=== PATIENT | female | born 1950 | race Asian ===

== ENCOUNTER 2024-10-04 12:29 | Outpatient (REF) | payer OTHER, SELFPAY ==
[2024-10-04 12:44] LABS: MANUAL DIFF FLAG NO
[2024-10-04 13:43] LABS: Basophils Absolute Auto 0.1 X10*3/uL (0.0-0.2); Basophils Percent Auto 0.5 % (0-2); Eosinophils Absolute Auto 0.7 X10*3/uL (0.0-0.4); Eosinophils Percent Auto 7.2 % (0-4); Hematocrit 34.3 % (37.0-47.0); Hemoglobin 10.8 g/dl (12.0-16.0); Imm Gran Abs Auto 0.02 X10*3/uL (0.00-0.03); Imm Gran Pct Auto 0.2 % (0.0-0.4); Lymphocytes Absolute Auto 2.3 X10*3/uL (1.2-4.9); Lymphocytes Percent Auto 24.6 % (20-40); Mean Corpuscular HGB Conc 31.5 g/dl (31.0-35.0); Mean Corpuscular Hemoglobin 27.2 pg (27.0-33.0); Mean Corpuscular Volume 86.4 fL (80.0-98.0); Mean Platelet Volume 12.2 fL (9.4-12.3); Monocytes Absolute Auto 0.8 X10*3/uL (0.1-1.2); Monocytes Percent Auto 8.4 % (2-11); Neutrophils Absolute Auto 5.4 x10*3/uL (2.0-8.3); Neutrophils Percent Auto 59.1 % (45-73); Platelet Count 319 X10*3/uL (160-400); Red Blood Count 3.97 X10*6/uL (4.20-5.50); Red Cell Distribution Width 14.2 % (11.0-16.0); White Blood Count 9.1 X10*3/uL (4.8-10.8)
[2024-10-04 14:17] LABS: Anion Gap 11 (12-20); Blood Urea Nitrogen 16 mg/dL (9-16); Calcium 9.8 mg/dL (8.4-10.2); Carbon Dioxide 29 mmol/L (22-29); Chloride 110 mmol/L (96-108); Estimated Glomerular Filt Rate > 60; Glucose Random 119 mg/dL (60-115); Potassium 4.1 mmol/L (3.3-5.1); Sodium 146 mmol/L (135-145)
[2024-10-04 14:24] LABS: TSH reflex Free T4 0.99 uIU/mL (0.32-4.0)
[2024-10-04 14:36] LABS: Vitamin B12 464 pg/mL (200-900)
[2024-10-04 14:55] LABS: Folate 9.6 ng/mL (> or = 4.0)
== END 2024-10-04 12:30 | disposition home or self-care (01) ==
LOC: HO.LAB 12:29
PROVIDERS: PCP Internal Medicine; Visit Provider Psychiatry & Neurology Neurology
DX: G31.84 Mild cognitive impairment of uncertain or unknown etiology (principal)
CPT/HCPCS: 36415; 80048; 82607; 82746; 84443; 85025

== ENCOUNTER 2024-12-15 15:11 | Outpatient (REF) | payer OTHER, SELFPAY ==
--- NOTE | 2024-12-15 | EEG_ITS ---
Reason: MCI, confusion Medications: sucralfate, pantoprazole sodium, nateglinide, myrbetriq, metformin HCL, loratadine, insulin Aspart, hydroxyzine, HCL, gabapentin, famotidine, trulicity, atorvastatin calcium, atenolol, aspirin, apixaban, amlodipine besylate, alendronate sodium, albuterol sulfate HFA History: COPD, hypertension, hyperlipidemia, diabetic, GERD [place] Comments: Photic stimulation: completed Hyperventilation: completed Behavioral state: relaxed State of consciousness: awake and drowsy Skull defect: none Sedation: no Handedness: right Duration of study: 30 mins Description: The waking background activity consists of a moderate voltage 7-8 hertz posterior slow alpha intermixed with some muscle artifacts anteriorly. Intermittent theta frequencies was seen over both hemispheres particularly in the frontotemporal regions. Photic stimulation is without activation. Hyperventilation increases the background slowing. Impression: This EEG is considered mildly abnormal due to mild diffuse intermittent scattered slowing consistent with mild cerebral dysfunction diffusely MTDD
--- OUTSIDE RECORDS SUMMARY | 2024-12-15 15:13 | XMS_ITS | Clinical Summary ---
Author Organization [address] Address [address] [place] [address] Phone Care Team Providers Care Restaurant Greeter Name Role Phone Jorge Spears MD Primary Care Provider [phone]- [phone] Encounters Date Type Department Care Team Description 11/07/2024 Lab Requisition [facility] - Main Lab [address] [facility] [place] [address] Jorge Spears MD Essential (primary) hypertension from Last 3 Months Social History Tobacco Use Types Packs/Day Years Used Date Smoking Tobacco: Never Assessed Comments Unknown Sex and Gender Information Value Date Recorded Sex Assigned at Not on file Legal Sex Female 8:11 PM EST Gender Identity Not on file Sexual Orientation Not on file Plan of Treatment Health Maintenance Due Date Last Done Comments Breast Cancer Screening 1952 Diabetes: Annual Foot Exam 1962 Diabetes: Annual Retina Eye Exam 1962 DTaP,Tdap,and Td Vaccines (1 - Tdap) 12/27/1971 Zoster Vaccines (1 of 2) 2002 RSV Immunization Adult Patients (1 - Risk 60-74 years 1-dose series) 2012 Cholesterol Screening (Lipid Panel) 03/21/2022 Colorectal Cancer Screening: Colonoscopy 03/21/2022 Falls Risk Assessment 03/21/2022 Hepatitis C Screening 03/21/2022 Osteoporosis Screening (Bone Density Screening) 03/21/2022 Social Influencers of Health Screening 03/21/2022 Depression Screening 04/19/2024 COVID-19 Vaccine ( season) 2024 01/18/2024, 06/08/2023, 08/13/2021, Additional history exists Diabetes: Annual Urine Albumin-Creatinine Ratio (uACR) 11/12/2024 Diabetes: Blood Sugar Control Test (HGBA1C) 11/12/2024 Influenza Vaccine (#1) 2024 , 01/26/2023, 01/05/2022, Additional history exists Diabetes: Annual GFR (Glomerular Filtration Rate) 11/07/2025 11/07/2024 Hypertension/CHF/CAD Annual BMP Blood Test 11/07/2025 11/07/2024 Pneumococcal Vaccine: 50+ Years Completed 03/31/2022 HIB Vaccines Aged Out No longer eligi ble based on patient's age to complete this topic HPV Vaccines Aged Out No longer eligi ble based on patient's age to complete this topic Hepatitis A Vaccines Aged Out No long er eligible based on patient's age to complete this topic Hepatitis B Vaccines Aged Out No long er eligible based on patient's age to complete this topic IPV Vaccines Aged Out No longer eligi ble based on patient's age to complete this topic MMR Vaccines Aged Out No longer eligi ble based on patient's age to complete this topic Meningococcal ACWY Vaccine Aged Out N o longer eligible based on patient's age to complete this topic Meningococcal B Vaccine Aged Out No l onger eligible based on patient's age to complete this topic RSV Immunization Patients Under 20 months Aged Out No longer eligible based on patient's age to complete this topic Varicella Vaccines Aged Out No longer eligible based on patient's age to complete this topic Procedures Procedure Name Priority Date/Time Associated Diagnosis Comments COMPREHENSIVE METABOLIC PANEL Routine 11/07/2024 7:17 AM EDT Essential (primary) hypertension COMPLETE BLOOD COUNT Routine 11/07/2024 7:17 AM EDT Essential (primary) hypertension from Last 3 Months Results * (ABNORMAL) Complete blood count (11/07/2024 7:17 AM EDT) WBC 9.4 4.8 - 10.8 K/mcL LAB HEMETOLOGY METHOD 11/07/2024 10:[address] [facility] RBC 3.50(L) 3.80 - 4.80 M/mcL LAB HEMETOLOGY METHOD 11/07/2024 10:[address] [facility] Hemoglobin 9.4(L) 11.5 - 16.0 g/dL LAB HEMETOLOGY METHOD 11/07/2024 10:[address] [facility] Hematocrit 29.6(L) 35.0 - 47.0 % LAB HEMETOLOGY METHOD 11/07/2024 10:[address] [facility] MCV 83.6 79.0 - 98.0 FL LAB HEMETOLOGY METHOD 11/07/2024 10:[address] [facility] MCH 26.6(L) 27.0 - 32.0 pcg LAB HEMETOLOGY METHOD 11/07/2024 10:[address] [facility] MCHC 31.8(L) 32.0 - 37.0 g/dL LAB HEMETOLOGY METHOD 11/07/2024 10:[address] [facility] RDW 13.8 11.0 - 15.0 % LAB HEMETOLOGY METHOD 11/07/2024 10:[address] [facility] Platelets 419(H) 130 - 400 K/mcL LAB HEMETOLOGY METHOD 11/07/2024 10:[address] [facility] MPV 11.3(H) 7.0 - 11.0 FL LAB HEMETOLOGY METHOD 11/07/2024 10:[address] [facility] NRBC 0.0 <1.0 % LAB HEMETOLOGY METHOD 11/07/2024 10:[address] [facility] NRBC Absolute 0.00 <0.10 K/mcL LAB HEMETOLOGY METHOD 11/07/2024 10:[address] [facility] Blood Venous blood specimen / Unknown Venipuncture / Unknown 11/07/2024 7:17 AM EDT 11/07/2024 8:48 AM EDT us Jorge Spears MD LAB BLOOD ORDERABLES Final Result [facility] [address] [place] [address], * (ABNORMAL) Comprehensive metabolic panel (11/07/2024 7:17 AM EDT) Sodium 141 133 - 145 mmol/L LAB CHEMISTRY METHOD 11/07/2024 11:[address] [facility] Potassium 4.5 3.5 - 5.5 mmol/L LAB CHEMISTRY METHOD 11/07/2024 11:[address] [facility] Chloride 108 96 - 110 mmol/L LAB CHEMISTRY METHOD 11/07/2024 11:[address] [facility] CO2 28 21 - 32 mmol/L LAB CHEMISTRY METHOD 11/07/2024 11:[address] [facility] Anion Gap 5 3 - 11 LAB CHEMISTRY METHOD 11/07/2024 11:[address] [facility] Glucose 176(H) 70 - 100 mg/dL LAB CHEMISTRY METHOD 11/07/2024 11:[address] [facility] BUN 14 5 - 25 mg/dL LAB CHEMISTRY METHOD 11/07/2024 11:[address] [facility] Creatinine 0.83 0.50 - 1.10 mg/dL LAB CHEMISTRY METHOD 11/07/2024 11:[address] [facility] eGFR 75 >=60 mL/min/1. 73m2 LAB CHEMISTRY METHOD 11/07/2024 11:[address] [facility] Comment:Calculation based on the Chronic Kidney Disease Epidemiology Collaboration (CKD-EPI) equation refit without adjustment for race. BUN/Creatinine Ratio 16.9 LAB CHEMISTRY METHOD 11/07/2024 11:[address] [facility] Calcium 8.7 8.5 - 10.5 mg/dL LAB CHEMISTRY METHOD 11/07/2024 11:[address] [facility] AST (SGOT) 16 10 - 42 unit/L LAB CHEMISTRY METHOD 11/07/2024 11:[address] [facility] ALT (SGPT) 22 10 - 60 unit/L LAB CHEMISTRY METHOD 11/07/2024 11:[address] [facility] Alkaline Phosphatase 94 42 - 121 unit/L LAB CHEMISTRY METHOD 11/07/2024 11:[address] [facility] Total Protein 6.8 6.0 - 8.0 g/dL LAB CHEMISTRY METHOD 11/07/2024 11:[address] [facility] Albumin 3.1(L) 3.2 - 5.0 g/dL LAB CHEMISTRY METHOD 11/07/2024 11:[address] [facility] Total Bilirubin 0.2 0.0 - 1.4 mg/dL LAB CHEMISTRY METHOD 11/07/2024 11:[address] [facility] Blood Venous blood specimen / Unknown Venipuncture / Unknown 11/07/2024 7:17 AM EDT 11/07/2024 8:48 AM EDT Jorge Spears MD LAB BLOOD ORDERABLES Final Result [facility] [address] [place] [address], from Last 3 Months Insurance [place]ICA[place] - [place] [facility] Member Subscriber Plan / Payer (Ef fective 2018-Present) Name:Eula Gibbs Relation to Subscriber:Self Name:Eula Gibbs Payer ID:[id number] Group ID:[id number] Type:Not on file Address: [address] [place] [address] Care Teams Restaurant Greeter Relationship Specialty Start Date End Date Jorge Spears MD [address] [place] [id number] PCP - General Internal Medicine 11/07/24
--- OUTSIDE RECORDS SUMMARY | 2024-12-15 15:13 | XMS_ITS | Encounter Summary ---
Author Organization [facility] Address [address] [place] [id number] Care Team Providers Care Skin Peeling Machine Operator Name Role Phone Jorge Spears MD Primary Care Provider [phone]- [phone] Encounter Details Date Type Department Care Team (Late st Contact Info) Description 11/07/2024 Lab Requisition [facility] - Main Lab [address] [place] [address] Jorge Spears MD [address] [place] [address] Essential (primary) hypertension Social History Tobacco Use Types Packs/Day Years Used Date Smoking Tobacco: Never Assessed Comments Unknown Sex and Gender Information Value Date Recorded Sex Assigned at Not on file Legal Sex Female 8:11 PM EST Gender Identity Not on file Sexual Orientation Not on file documented as of this encounter Plan of Treatment Not on file documented as of this encounter Procedures Procedure Name Priority Date/Time Associated Diagnosis Comments COMPLETE BLOOD COUNT Routine 11/07/2024 7:17 AM EDT Essential (primary) hypertension COMPREHENSIVE METABOLIC PANEL Routine 11/07/2024 7:17 AM EDT Essential (primary) hypertension documented in this encounter Results * (ABNORMAL) Comprehensive metabolic panel (11/07/2024 7:17 AM EDT) Sodium 141 133 - 145 mmol/L LAB CHEMISTRY METHOD 11/07/2024 11:00 AM EDT [facility] Potassium 4.5 3.5 - 5.5 mmol/L LAB CHEMISTRY METHOD 11/07/2024 11:00 AM EDT [facility] Chloride 108 96 - 110 mmol/L [...] unit/L LAB CHEMISTRY METHOD 11/07/2024 11:[address] [facility] ALT (SGPT) 22 10 - 60 unit/L LAB CHEMISTRY METHOD 11/07/2024 11:[address] [facility] Alkaline Phosphatase 94 42 - 121 unit/L LAB CHEMISTRY METHOD 11/07/2024 11:[address] [facility] Total Protein 6.8 6.0 - 8.0 g/dL LAB CHEMISTRY METHOD 11/07/2024 11:[address] [facility] Albumin 3.1(L) 3.2 - 5.0 g/dL LAB CHEMISTRY METHOD 11/07/2024 11:[address] [facility] Total Bilirubin 0.2 0.0 - 1.4 mg/dL LAB CHEMISTRY METHOD 11/07/2024 11:[address] [facility] Blood Venous blood specimen / Unknown Venipuncture / Unknown 11/07/2024 7:17 AM EDT 11/07/2024 8:48 AM EDT us Jorge Spears MD LAB BLOOD ORDERABLES Final Result [facility] [address] [place] [address], * (ABNORMAL) Complete blood count (11/07/2024 7:17 AM EDT) WBC 9.4 4.8 - 10.8 K/mcL LAB HEMETOLOGY METHOD 11/07/2024 10:[address] [facility] RBC 3.50(L) 3.80 - 4.80 M/mcL LAB HEMETOLOGY METHOD 11/07/2024 10:[address] [facility] Hemoglobin 9.4(L) 11.5 - 16.0 [...] g/dL LAB HEMETOLOGY METHOD 11/07/2024 10:41 AM EDT [facility] RDW 13.8 11.0 - 15.0 % LAB HEMETOLOGY METHOD 11/07/2024 10:41 AM EDT [facility] Platelets 419(H) 130 - 400 K/mcL LAB HEMETOLOGY METHOD 11/07/2024 10:41 AM EDT [facility] MPV 11.3(H) 7.0 - 11.0 FL LAB HEMETOLOGY METHOD 11/07/2024 10:41 AM EDT [facility] NRBC 0.0 <1.0 % LAB HEMETOLOGY METHOD 11/07/2024 10:41 AM EDT [facility] NRBC Absolute 0.00 <0.10 K/mcL LAB HEMETOLOGY METHOD 11/07/2024 10:41 AM EDT [facility] Blood Venous blood specimen / Unknown Venipuncture / Unknown 11/07/2024 7:17 AM EDT 11/07/2024 8:48 AM EDT Jorge Spears MD LAB BLOOD ORDERABLES Final Result [facility] [address] [place] [address], documented in this encounter Visit Diagnoses Diagnosis Essential (primary) hypertension Unspecified essential hypertension documented in this encounter Care Teams Skin Peeling Machine Operator Relationship Specialty Start Date End Date Jorge Spears MD [address] [place] [id number] PCP - General Internal Medicine 11/07/24 documented as of this encounter
--- OUTSIDE RECORDS SUMMARY | 2024-12-15 15:13 | XMS_ITS | Clinical Summary ---
Author Organization [facility] Address [address] [place] [address] Care Team Providers Care Tax Commissioner Name Role Phone Unavailable Primary Care Provider Unavailabl e Source Comments PLEASE NOTE, if this patient is a minor, it may be UNLAWFUL to discuss sensitive information that is contained in these records (such as FAMILY PLANNING, MENTAL HEALTH or SUBSTANCE ABUSE) with the minor patient's parent or other person without the patient's specific authorization.[facility] Medications No known medications Active Problems No known active problems Social History Tobacco Use Types Packs/Day Years Used Date Smoking Tobacco: Never Smokeless Tobacco: Never Tobacco Cessation:Counseling Given: No Alcohol Use Standard Drinks/Week Comments Never 0 (1 standard drink = 0.6 oz pur e alcohol) Social Connections Answer Date Recorded Social Connections and Isolation 0 07/24/2022 Financial Resource Strain Answer Date R ecorded Financial Resource Strain 0 2022 Stress Answer Date Recorded Stress 0 07/24/2022 Physical Activity Answer Date Recorded Physical Activity 0 07/24/2022 Food Insecurity Answer Date Recorded Food 0 07/24/2022 Transportation Needs Answer Date Record ed Transportation 0 07/24/2022 Housing Stability Answer Date Recorded Housing 0 07/24/2022 Safety and Environment Answer Date Johnny rded Safety 0 07/24/2022 Utilities Answer Date Recorded Utilities 0 07/24/2022 Employment Answer Date Recorded Employment 0 07/24/2022 Comments Unknown Sex and Gender Information Value Date Recorded Sex Assigned at Not on file Legal Sex Female 7:00 AM PST Gender Identity Not on file Sexual Orientation Not on file Last Filed Vital Signs Vital Sign Reading Time Taken Comments Blood Pressure 114/66 06/09/2022 12:57 PM EST Pulse 80 06/09/2022 12:57 PM EST Temperature - - Respiratory Rate - - Oxygen Saturation - - Inhaled Oxygen Concentration - - Weight - - Height - - Body Mass Index - - Plan of Treatment Not on file Insurance [facility] - [facility]
== END 2024-12-15 15:12 | disposition home or self-care (01) ==
LOC: HO.NEURO 15:11
PROVIDERS: PCP Internal Medicine; Visit Provider Psychiatry & Neurology Neurology
DX: G31.84 Mild cognitive impairment of uncertain or unknown etiology (principal); R94.01 Abnormal electroencephalogram [EEG]
CPT/HCPCS: 95816

== ENCOUNTER → 2024-12-15 15:15 | Outpatient (BNV) | payer OTHER, SELFPAY | PROVIDERS: PCP Internal Medicine; Visit Provider Psychiatry & Neurology Neurology | DX: G31.84 Mild cognitive impairment of uncertain or unknown etiology (principal) | CPT/HCPCS: 95816 ==

== ENCOUNTER 2025-02-06 15:33 | Outpatient (AMB) | payer OTHER, SELFPAY ==
--- NOTE | 2025-02-06 15:38 | MHC.OFFVIS ---
Intake Visit Reasons: [facility] Medication List - Last Reconciled 02/06/25 by Ralf Stern MD albuterol sulfate 90 mcg/actuation (Ventolin HFA) 2 puffs inhalation Q6H PRN alendronate 70 mg PO QWEEK amlodipine 5 mg PO DAILY apixaban 5 mg PO BID aspirin 81 mg PO DAILY atenolol 25 mg PO DAILY atorvastatin (Lipitor) 80 mg PO DAILY dulaglutide (Trulicity) 0.75 mg subcut QWEEK famotidine 20 mg PO BEDTIME gabapentin 300 mg PO BID hydroxyzine HCl 25 mg PO DAILY PRN insulin aspart U-100 1 sliding scale dose subcut USEASDIRECTD loratadine (Allergy Relief (loratadine)) 10 mg PO DAILY metformin 500 mg PO BID mirabegron ER (Myrbetriq) 25 mg PO DAILY nateglinide 120 mg PO BID pantoprazole 40 mg PO DAILY sucralfate 10 mL PO QID HPI Comments Details: This is a 74-year-old woman who has been having more frequent episodes of confusion in the last 3 months where she becomes more forgetful, disoriented and dizzy.? At least 2 of these were associated with a UTI.? The symptoms come and go.? She also has paranoia that people are stealing her things and hides her things and can't find them.? She has visual hallucinations of seeing people.? She lives alone and on one occasion she called the police.? The visiting nurses come in every morning to give her the morning pills and check vitals.? Her daughter and grandson look in later in the day.? She had a CT and CTA on 09/09/24 and an MRI of the brain on 07/13/24, which showed some white matter disease and bilateral basal ganglia lacunar infarct , and a right cerebellar infarct. [facility] Medical History (Updated 02/06/25 @ 15:52 by Ralf Stern MD) GERD (gastroesophageal reflux disease) Diabetes mellitus Hyperlipemia HTN (hypertension) COPD (chronic obstructive pulmonary disease) Social History (Updated 02/01/25 @ 15:26 by CASSANDRA Jackson) Alcohol intake: never Patient Tobacco Use Status: Never used Tobacco e-Cigarette/Vaping Use: Never Used Review of Systems Const Details: ?Sleep:? Difficulty getting to sleepdenies.? Difficulty maintaining sleepdenies?.? Urge to move legsdenies.? Teeth grindingdenies.? Shouting or Kicking during sleepdenies.? Abnormal behavior during sleepdenies.? Excessive sleepadmits.? Snoringadmits.? Daytime sleepinessdenies. ???General/Constitutional:? Change in appetitedenies.? Chillsdenies.? Fatiguedenies.? Feverdenies.? Weight gaindenies.? Weight lossdenies. ???Ophthalmologic:? Blurred visiondenies.? Diminished visual acuitydenies. ???ENT:? Stuffinessdenies.? Decreased hearingadmits.? Dry mouthdenies.? Ear paindenies.? Nosebleeddenies.? Ringing in the earsdenies.? Sinus paindenies.? Sore throatdenies.? Swollen glandsdenies. ???Endocrine:? Cold intolerancedenies.? Excessive thirstdenies.? Frequent urinationdenies.? Heat intolerancedenies. ???Respiratory:? Shortness of breathdenies.? Chest paindenies.? Coughdenies. ???Breast:? Breast lumpdenies.? Nipple dischargedenies. ???Cardiovascular:? Chest pain at restdenies.? Chest pain with exertiondenies.? Claudicationdenies.? Dizzinessdenies.? Fluid accumulation in the legsdenies.? Irregular heartbeatdenies.? Palpitationsdenies. ???Gastrointestinal:? Abdominal paindenies.? Constipationdenies.? Diarrheadenies.? Difficulty swallowingdenies.? Heartburnadmits.? Nauseadenies.? Rectal bleedingdenies. ???Hematology:? Easy bruisingdenies.? Prolonged bleedingdenies. ???Genitourinary:? Frequent urinationadmits.? Urgencyadmits.? Incontinenceadmits.? Erectile Dysfunctiondenies. ???Musculoskeletal:? Neck painadmits.? Back painadmits.? Muscle achesadmits.? Painful jointsdenies.? Sciaticadenies.? Weaknessdenies. ???Podiatric:? Difficulty walkingdenies.? Foot numbnessdenies. ???Neurologic:? Difficulty swallowingdenies.? Balance difficultyadmits.? Coordinationnormal.? Difficulty speakingdenies.? Dizzinessadmits.? Faintingdenies.? Gait abnormalitydenies.? Headachedenies.? Loss of strengthdenies.? Loss of use of extremitydenies.? Low back paindenies.? Memory lossdenies.? Seizuresdenies.? Ticsdenies.? Tingling/Numbnessdenies.? Transient loss of visiondenies.? Tremordenies. ???Psychiatric:? Anxietyadmits.? Auditory/visual hallucinationsadmits.? Delusionsadmits.? Depressed mooddenies.? Stressorsdenies.? Substance abusedenies.? Suicidal thoughtsdenies. Physical Exam Neuro Other: Neurological: Abnormal neurological findings:??none.?Mental Status:??alert and oriented X 3,?Normal attention, orientation, memory and affect.?Cranial Nerves:??Pupils are equal, round and reactive to light. Fundoscopy shows normal disc bilaterally. External occular muscles are intact. Visual black are full, no ptosis. Face is symmetrical, no facial weakness or droop. Facial sensations are normal. Tongue protrudes in midline. Palate elevates symmetrically. Shoulder shrugging is normal..?Motor Examination:??Normal muscle tone, bulk and strength,?No atrophy or fasciculations,?No drift of the extended upper extremities,?Deep tendon reflexes are 2+?,?Plantars are flexor?.?Motor Strength:?Proximal Muscles (out of 5):5Distal Muscles (out of 5):5Neck Flexors (out of 5):5Neck Extensors (out of 5):5Deltoid (out of 5):5Biceps (out of 5):5Triceps (out of 5):5Serratus Anterior (out of 5):5Wrist Extensors (out of 5):5APB (out of 5):5Finger Spread (out of 5):5Ileopsoas (out of 5):5Quadriceps (out of 5):5Hamstrings (out of 5):5Tibialis Anterior (out of 5):5Peronei (out of 5):5EDB (out of 5):5Gastrocnemius (out of 5):5Straight Leg Raising:??90 degrees.?Sensory Exam:??Normal light touch, temperature, pinprick, vibration and joint-position sensations?,?Rhomberg sign is absent.?Coordination:??no ataxia,?no titubation,?flafxc-ax-cmsm, qrqy-csga-xhzf test and rapid alternating movements were normal.?Gait Exam:??Within normal limits.?Cerebellar Signs:??Aapepi-of-cbgr and dalj-rg-qupr is normal,?no dysdiadochokinesia?.?Extrapyramidal System:??No tremor, rigidity with normal facial expressions,?No bradykinesia, no bradyphrenia. Normal arm swing and posture. No propulsion or retropulsion.?Speech:??Normal,?no dysphasia or dysarthria..? Mini Mental Status Exam: Level of Consciousness:??Alert.?Orientation:??Knows correct year, month, date, day and season,?Knows correct city, county and state. Knows correct location and floor.?Registration:??Able to register 3 objects.?Attention:??Serial 7's performed accurately.?Recall:??Able to recall 3 out of 3 objects.?Language:??Normal spontaneous speech, fluency, repetition,naming, comprehension, reading and writing.?Total Score:??30/30.? Assessment & Plan Assessment & Plan (1) MCI (mild cognitive impairment): Comment: 10/04/24 Thyroid and Vitamin levels normal. Mild anemia and hypernatremia 12/15/24 EEG: Impression: This EEG is considered mildly abnormal due to mild diffuse intermittent scattered slowing consistent with mild cerebral dysfunction diffusely CT and CTA on 09/09/24 and an MRI of the brain on 07/13/24, which showed some white matter disease and bilateral basal ganglia lacunar infarct , and a right cerebellar infarct. Code(s): G31.84 - Mild cognitive impairment of uncertain or unknown etiology Category: Medical (2) Hallucinations: Code(s): R44.3 - Hallucinations, unspecified Category: Medical (3) Lewy body dementia: Comment: Possible LBD Code(s): G31.83 - Neurocognitive disorder with Lewy bodies; F02.80 - Dementia in other diseases classified elsewhere, unspecified severity, without behavioral disturbance, psychotic disturbance, mood disturbance, and anxiety Category: Medical Plan Hallucinations have stopped. Will add Donepezil Medications: New donepezil 5 mg PO DAILY 30 tabs 5RF 30 days Coding Level of Care Code Est Pt Level 4 (03894) Diagnoses MCI (mild cognitive impairment) G31.84 Hallucinations R44.3 Lewy body dementia G31.83; F02.80
--- OUTSIDE RECORDS SUMMARY | 2025-02-06 20:37 | XMS_ITS | Encounter Summary ---
Author Organization [facility] Address [id number] [place] [id number] Care Team Providers Care Assembly Lead Person Name Role Phone Jorge Spears MD Primary Care Provider [phone]- [phone] Encounter Details Date Type Department Care Team (Late st Contact Info) Description 11/07/2024 Lab Requisition [facility] - Main Lab [address] [place] [address] Jorge Spears MD [address] [place] [address] Essential (primary) hypertension Social History Tobacco Use [...] LAB CHEMISTRY METHOD 11/07/2024 11:00 AM EDT [facility] Potassium 4.5 3.5 - 5.5 mmol/L LAB CHEMISTRY METHOD 11/07/2024 11:00 AM EDT [facility] Chloride 108 96 - 110 mmol/L LAB CHEMISTRY METHOD 11/07/2024 11:00 AM [facility] CO2 28 21 - 32 mmol/L LAB CHEMISTRY METHOD 11/07/2024 11:00 AM [facility] Anion Gap 5 3 - 11 LAB CHEMISTRY METHOD 11/07/2024 11:00 AM [facility] Glucose 176(H) 70 - 100 mg/dL LAB CHEMISTRY METHOD 11/07/2024 11:00 AM [facility] BUN 14 5 - 25 mg/dL LAB CHEMISTRY METHOD 11/07/2024 11:00 AM [facility] Creatinine 0.83 0.50 - 1.10 mg/dL LAB CHEMISTRY METHOD 11/07/2024 11:00 AM [facility] eGFR 75 >=60 mL/min/1. 73m2 LAB CHEMISTRY METHOD 11/07/2024 11:00 AM [facility] Comment:Calculation based on the Chronic Kidney Disease Epidemiology Collaboration (CKD-EPI) equation refit without adjustment for race. BUN/Creatinine Ratio 16.9 LAB CHEMISTRY METHOD 11/07/2024 11:00 AM [facility] Calcium 8.7 8.5 - 10.5 mg/dL LAB CHEMISTRY METHOD 11/07/2024 11:00 AM [facility] AST (SGOT) 16 10 - 42 unit/L LAB CHEMISTRY METHOD 11/07/2024 11:00 AM [facility] ALT (SGPT) 22 10 - 60 unit/L LAB CHEMISTRY METHOD 11/07/2024 11:00 AM [facility] Alkaline Phosphatase 94 42 - 121 unit/L LAB CHEMISTRY METHOD 11/07/2024 11:00 AM [facility] Total Protein 6.8 6.0 - 8.0 g/dL LAB CHEMISTRY METHOD 11/07/2024 11:00 AM [facility] Albumin 3.1(L) 3.2 - 5.0 g/dL LAB CHEMISTRY METHOD 11/07/2024 11:00 AM [facility] Total Bilirubin 0.2 0.0 - 1.4 mg/dL LAB CHEMISTRY METHOD 11/07/2024 11:00 AM [facility] Blood Venous blood specimen / Unknown Venipuncture / Unknown 11/07/2024 7:17 AM EDT 11/07/2024 8:48 AM EDT us Jorge Spears MD LAB BLOOD ORDERABLES Final Result [facility] [address] [place] [address], * (ABNORMAL) Complete blood count (11/07/2024 7:17 AM EDT) WBC 9.4 4.8 - 10.8 K/mcL LAB HEMETOLOGY METHOD 11/07/2024 10:41 AM [facility] RBC 3.50(L) 3.80 - 4.80 M/mcL LAB HEMETOLOGY METHOD 11/07/2024 10:41 AM [facility] Hemoglobin 9.4(L) 11.5 - 16.0 g/dL LAB HEMETOLOGY METHOD 11/07/2024 10:41 AM [facility] Hematocrit 29.6(L) 35.0 - 47.0 % LAB HEMETOLOGY METHOD 11/07/2024 10:41 AM [facility] MCV 83.6 79.0 - 98.0 FL LAB HEMETOLOGY METHOD 11/07/2024 10:41 AM [facility] MCH 26.6(L) 27.0 - 32.0 pcg LAB HEMETOLOGY METHOD 11/07/2024 10:41 AM [facility] MCHC 31.8(L) 32.0 - 37.0 g/dL LAB HEMETOLOGY METHOD 11/07/2024 10:41 AM EDT [facility] RDW 13.8 11.0 - 15.0 % LAB HEMETOLOGY METHOD 11/07/2024 10:41 AM EDT [facility] Platelets 419(H) 130 - 400 K/mcL LAB HEMETOLOGY METHOD 11/07/2024 10:41 AM EDT [facility] MPV 11.3(H) 7.0 - 11.0 FL LAB HEMETOLOGY METHOD 11/07/2024 10:41 AM EDT [facility] NRBC 0.0 <1.0 % LAB HEMETOLOGY METHOD 11/07/2024 10:41 AM EDT [facility] NRBC Absolute 0.00 <0.10 K/mcL LAB HEMETOLOGY METHOD 11/07/2024 10:41 AM EDT [facility] Blood Venous blood specimen / Unknown Venipuncture / Unknown 11/07/2024 7:17 AM EDT 11/07/2024 8:48 AM EDT Jorge Spears MD LAB BLOOD ORDERABLES Final Result [facility] [address] [place] [address], documented in this encounter Visit Diagnoses Diagnosis Essential (primary) hypertension Unspecified essential hypertension documented in this encounter Care Teams Assembly Lead Person Relationship Specialty Start Date End Date Jorge Spears MD [address] [place] [id number] PCP - General Internal Medicine 11/07/24 documented as of this encounter
--- OUTSIDE RECORDS SUMMARY | 2025-02-06 20:37 | XMS_ITS | Data Portability ---
Author Organization [employer] [facility], [email or web address] Address [address] [place] [phone] Care Team Providers Care Bioinformatics Scientist Name Role Phone EULA MADDOX Primary Care Provider HIM CCA OTHER Assessment Encounter Date Assessment Date Assessment LastModified by Organization Details LastModified Time 11/08/2023 11/08/2023 72 yo F with recent UTI now seen with altered mental status, visual hallucinations and found to be hypotensive w/tachycardia all concerning for severe sepsis. Pt was transported to [facility] ED for further evaluation and management. [email or web address] Not available 11/11/2023 21:41:44 Plan of Treatment Reminders Order Date Submit Date Provider Last Modified By Organization Details Last Modified Time Details Appointments None record ed. Lab None record ed. Referral None record ed. Procedures None record ed. Surgeries None record ed. Imaging None record ed. Medication Orders None record ed. Patient TargetsNo targets recorded. Patient InstructionsNo instructions recorded. Reason for Referral None Reported. Medical Equipment None Reported. Medications Name Sig Start Date Stop Date Status Note LastModified by Organization Details LastModified Time losartan 50 mg tablet TAKE 1 TABLET ONCE DAILY active Not Available Not Available No t Available quetiapine 25 mg tablet TAKE 1/2 TAB ONCE DAILY FOR 4 DAYS; THEN INCREASE TO 1 TAB ONCE DAILY active Not Available Not Available No t Available nateglinide 120 mg tablet TAKE 1 TABLET two (2) times a day active Not Available Not Available No t Available atorvastatin 80 mg tablet TAKE 1 TABLET ONCE DAILY active Not Available Not Available No t Available azelastine 0.05 % eye drops INSTILL 1 DROP IN EACH EYE NEEDED FOR ALLERGIES active Not Available Not Available No t Available doxycycline hyclate 100 mg capsule TAKE 1 CAPSULE two (2) times a day FOR 7 DAYS active Not Available Not Available No t Available ondansetron HCl 4 mg tablet TAKE 1 TABLET EVERY 8 HOURS FOR 3 DAYS FOR NAUSEA active Not Available Not Available No t Available alendronate 70 mg tablet TAKE 1 TABLET BY MOUTH ONCE A WEEK ON AN EMPTY STOMACH WITH A FULL GLASS OF WATER. REMAIN UPRIGHT FOR AT LEAST 30 MINUTES. active Not Available Not Available No t Available Alcohol Pads USE TO TEST FINGER STICK BLOOD SUGAR 3 (THREE) TIMES A DAY DIRECTED active Not Available Not Available Not Available atenolol 25 mg tablet TAKE 1 TABLET two (2) times a day active Not Available Not Available No t Available clobetasol 0.05 % topical cream APPLY TO THE AFFECTED AREA ON SKIN two (2) times a day active Not Available Not Available No t Available amlodipine 5 mg tablet TAKE 1 TABLET ONCE DAILY active Not Available Not Available No t Available sulfamethoxa zole 800 mg-trimethop rim 160 mg tablet TAKE 1 TABLET BY MOUTH two (2) times a day active Not Available Not Available No t Available aspirin 81 mg tablet,delay ed release TAKE 1 TABLET ONCE DAILY active Not Available Not Available No t Available acetaminophe n 500 mg tablet TAKE 2 TABLETS 3 (THREE) TIMES A DAY NEEDED FOR PAIN active Not Available Not Available No t Available ketorolac 0.5 % eye drops INSTILL 1 DROP IN EACH EYE two (2) times a day active Not Available Not Available Not Available famotidine 20 mg tablet TAKE 1 TABLET ONCE DAILY BEFORE DINNER active Not Available Not Available No t Available Proctozone-H C 2.5 % topical cream perineal applicator APPLY A THIN LAYER TO THE AFFECTED AREA ON SKIN AND RUB in 3 (THREE) TIMES A DAY active Not Available Not Available Not Available meclizine 25 mg tablet TAKE 1 TABLET 3 (THREE) TIMES A DAY NEEDED FOR DIZZINESS active Not Available Not Available No t Available pantoprazole 40 mg tablet,delay ed release TAKE 1 TABLET ONCE DAILY active Not Available Not Available No t Available docusate sodium 100 mg capsule TAKE 1 CAPSULE two (2) times a day FOR CONSTIPATIO N active Not Available Not Available No t Available gabapentin 300 mg capsule TAKE 1 CAPSULE two (2) times a day active Not Available Not Available No t Available hydroxyzine HCl 25 mg tablet TAKE 1 TABLET 3 (THREE) TIMES A DAY NEEDED active Not Available Not Available No t Available ammonium lactate 12 % topical cream APPLY TO THE AFFECTED AREA ON SKIN two (2) times a day active Not Available Not Available No t Available levofloxacin 500 mg tablet TAKE 1 TABLET ONCE DAILY FOR 7 DAYS. TAKE WITH FOOD active Not Available Not Available No t Available fluticasone propionate 50 mcg/actuatio n nasal spray,suspen rafaela SPRAY ONCE INTO EACH NOSTRIL two (2) times a day active Not Available Not Available No t Available metformin ER 500 mg tablet,exten ded release 24 hr TAKE 2 TABLETS ONCE DAILY active Not Available Not Available N ot Available loratadine 10 mg tablet TAKE 1 TABLET ONCE DAILY active Not Available Not Available No t Available amoxicillin 500 mg-potassium clavulanate 125 mg tablet TAKE 1 TABLET EVERY TWELVE HOURS FOR 7 DAYS active Not Available Not Available No t Available Ventolin HFA 90 mcg/actuatio n aerosol inhaler INHALE 2 PUFFS INTO lungs EVERY 6 HOURS NEEDED FOR WHEEZING active Not Available Not Available No t Available Vitamin D3 25 mcg (1,000 unit) capsule TAKE 1 CAPSULE ONCE DAILY active Not Available Not Available N ot Available Novolog FlexPen U-100 Insulin aspart 100 unit/mL (3 mL) subcutaneous INJECT 14 UNITS SUBCUTANEOU SLY BEFORE BREAKFAST AND INJECT 14 UNITS SUBCUTANEOU SLY BEFORE DINNER active Not Available Not Available No t Available ciprofloxaci n 0.3 %-dexamethas one 0.1 % ear drops,suspen rafaela INSTILL 4 DROP IN THE AFFECTED EAR two (2) times a day FOR 10 DAYS active Not Available Not Available Not Available nitrofuranto in monohydrate/ macrocrystal s 100 mg capsule TAKE 1 CAPSULE two (2) times a day FOR 5 DAYS active Not Available Not Available No t Available FreeStyle Lite Meter kit USE TO TEST FINGER STICK BLOOD SUGAR 3 (THREE) TIMES A DAY active Not Available Not Available Not Available FreeStyle Lite Strips USE TO TEST FINGER STICK BLOOD SUGAR 3 (THREE) TIMES A DAY active Not Available Not Available Not Available Lantus Solostar U-100 Insulin 100 unit/mL (3 mL) subcutaneous pen INJECT 14 UNITS SUBCUTANEOU SLY EVERY NIGHT AT BEDTIME active Not Available Not Available No t Available diclofenac 1 % topical gel APPLY 2 grams TO THE AFFECTED AREA ON SKIN 4 (FOUR) TIMES DAILY NEEDED FOR PAIN. not to exceed 16grams/day /single joint OF lower extremities active Not Available Not Available Not Available GaviLyte-G 236 gram-22.74 gram-6.74 gram-5.86 gram oral solution MIX WITH WATER TO fill line AND DRINK 240ml EVERY 10 MINUTES active Not Available Not Available N ot Available Myrbetriq 25 mg tablet,exten ded release TAKE 1 TABLET ONCE DAILY. NOT CRUSH OR CHEW AND SWALLOW active Not Available Not Available No t Available Eliquis 5 mg tablet TAKE 1 TABLET two (2) times a day active Not Available Not Available No t Available Inject Ease Lancets 28 gauge USE TO TEST FINGER STICK BLOOD SUGAR 3 (THREE) TIMES A DAY active Not Available Not Available Not Available Trulicity 0.75 mg/0.5 mL subcutaneous pen injector INJECT THE CONTENT OF 1 pen SUBCUTANEOU SLY EACH WEEK active Not Available Not Available No t Available baclofen 5 mg tablet TAKE 1 TABLET 3 (THREE) TIMES A DAY FOR MUSCLE SPASM active Not Available Not Available No t Available True Comfort Lancet 30 gauge USE TO TEST FINGER STICK BLOOD SUGAR 3 (THREE) TIMES A DAY active Not Available Not Available Not Available Gemtesa 75 mg tablet TAKE 1 TABLET ONCE DAILY active Not Available Not Available No t Available True Comfort Safety Pen Needle 32 gauge x 5/32 USE DIRECTED 4 (FOUR) TIMES DAILY active Not Available Not Available Not Available Vitals Date Recorded Body temperature Heart rate Respiratory rate Oxygen saturation Oxygen saturation in Arterial blood by Pulse oximetry Systolic And Diastolic Provider Name and Address Organization Details Last Updated DateTime 4 98.3 [degF] 132 /min 16 /min 96 % 96 % 93/66 mm[Hg] Not Available [employer] - production 4 10:40:04 Social History None recorded. Functional Status None recorded. Mental Status None recorded. Family History Nothing Reported. Medical History No medical history recorded. Gynecological HistoryNo gynecological history recorded. Obstetrics History GPAL:G 0 P 0 0 0 0 Past Encounters Encounter ID Performer Location Encounter Start Date Encounter Closed Date Diagnosis/Indication Diagnosis SNOMED-CT Code Diagnosis ICD10 Code Diagnosis IMO Codes Diagnosis Note [id number] FABIANA PARKER MD Main - [facility] [address] [place] [address] 11/08/2023 10:39:40 11/12/2023 08:29:03 Altered mental status 066975166 R41.82 Low blood pressure 22129 003 I95.9 Tachycardia 7286965 R00. 0 Health Concerns Section Related Observation LastModified by Organization Barbie atkinson LastModified Time None Recorded Concern Status LastModified by Organization Details LastModified Time None Recorded Advance Directives Directive None Recorded Payers Insurance Date Sequence Insurance Name Policy Number Policy Elizabeth Covered Member ID Elizabeth Member ID Guarantor Name 11/08/2023 1 [facility] - DOS ON OR AFTER 2022 - DUAL ELIGIBLE - [facility] OPTIONS AND ONE CARE (MEDICARE REPLACEMENT/ADV ANTAGE - HMO) Eula Gibbs [id number] Eula Gibbs Notes Date Note Type Note Provider Name and Address Organization Details Recorded Time 11/08/2023 text/html CRC Nurse Triage Notes (Roxy Gao): Reason For Request: abd pain/ N/v/ Chief Complaints: Diarrhea, Abdominal Pain PMH: Diabetes, Hypertension, Other Allergies: No Known Comments: Phosphoric Acid Supervisor verified the member's name//address and phone number. Member is a [place] speaking 72 yr old female PMH > DM> HTN/ HLD, CVA 2019 , some weakness on one side but daughter cant remember which sideAllergy NKDA The daughter is calling for the member. The member has had loose stool for 2-3 weeks. The member was first found to have a UTI, then had a bacterial infection, and has been on antibiotics for over a month. The member is now having loose stool, vomiting, and abdominal pain. The daughter does not think it is from the antibiotics but from the infection. BS 142-180. Member is on blood thinner but unsure which one. Member is weak, not confused but out of it Education provided on the response time and the member was advised to monitor reported s/s and seek emergency treatment if needed Stock Sorter POC Test Results from [facility] EKG (11:22:20) EKG test performed. Attachments uploaded as part of this test result can be found under Documents section. ................... ................... ................... ................... ................... ................... ................... ........ Stock Sorter Note From [facility]: Pt s daughter/CG reports pt was dx with a UTI approx one month ago, dx with a vibrio bacterial infection 3 weeks ago and has been progressively getting worse since. Pt c/o watery diarrhea, confusion, ABD discomfort, nausea with vomiting, and weakness. Daughter also sts last night the pt was hallucinating people walking around her home. Pt is alert, NAD. Hypotensive and tachycardic. Aferbile. Non focal neuro exam. Lungs CTA. ABD is soft, non distended. No LE edema. ECG uploaded. 911 initiated for EMS transport to [facility]. Pt treated with normal saline 500 cc IV while waiting for EMS. SBAR to [facility]. ................... ................... ................... ................... ................... ................... ................... ........ Disposition: Fulfilled FABIANA PARKER MD [address] [facility],[address], [place], [address], [employer] [facility] [place] 11/11/2023 21:41:56 OBGyn Episode No OBEpisode recorded.
--- OUTSIDE RECORDS SUMMARY | 2025-02-06 20:37 | XMS_ITS | Clinical Summary ---
Author Organization [address] Address [address] [place] [address] Phone Care Team Providers Care Disability Liaison Officer Name Role Phone Jorge Spears MD Primary Care Provider +1- [phone] Encounters Date Type Department Care Team Description 11/07/2024 Lab Requisition [facility] - Main Lab [address] [facility] [place] [address] Jorge Spears MD Essential (primary) [...] Last Done Comments Breast Cancer Screening 1952 Colorectal Cancer Screening: Colonoscopy 1952 Diabetes: Annual Foot Exam 1962 Diabetes: Annual Retina Eye Exam 1962 DTaP,Tdap,and Td Vaccines (1 - Tdap) 12/27/1971 RSV Immunization Adult Patients (1 - Risk 50-74 years 1-dose series) 2002 Zoster Vaccines (1 of 2) 2002 Cholesterol Screening (Lipid Panel) 03/21/2022 Falls Risk Assessment 03/21/2022 Hepatitis C Screening 03/21/2022 Osteoporosis Screening (Bone Density Screening) 03/21/2022 Social Influencers of Health Screening 03/21/2022 Depression Screening 04/19/2024 Diabetes: Annual Urine Albumin-Creatinine Ratio (uACR) 11/12/2024 Diabetes: Blood Sugar Control Test (HGBA1C) 11/12/2024 COVID-19 Vaccine ( season) 2024 01/18/2024, 06/08/2023, 08/13/2021, Additional history exists Influenza Vaccine (#1) 2024 , 01/26/2023, 01/05/2022, [...] LAB HEMETOLOGY METHOD 11/07/2024 10:41 AM EDT [facility] RBC 3.50(L) 3.80 - 4.80 M/mcL LAB HEMETOLOGY METHOD 11/07/2024 10:41 AM EDT [facility] Hemoglobin 9.4(L) 11.5 - 16.0 g/dL LAB HEMETOLOGY METHOD 11/07/2024 10:41 AM [facility] Hematocrit 29.6(L) 35.0 - 47.0 % LAB HEMETOLOGY METHOD 11/07/2024 10:41 AM [facility] MCV 83.6 79.0 - 98.0 FL LAB HEMETOLOGY METHOD 11/07/2024 10:41 AM [facility] MCH 26.6(L) 27.0 - 32.0 pcg LAB HEMETOLOGY METHOD 11/07/2024 10:41 AM [facility] MCHC 31.8(L) 32.0 - 37.0 g/dL LAB HEMETOLOGY METHOD 11/07/2024 10:41 AM [facility] RDW 13.8 11.0 - 15.0 % LAB HEMETOLOGY METHOD 11/07/2024 10:41 AM [facility] Platelets 419(H) 130 - 400 K/mcL LAB HEMETOLOGY METHOD 11/07/2024 10:41 AM [facility] MPV 11.3(H) 7.0 - 11.0 FL LAB HEMETOLOGY METHOD 11/07/2024 10:41 AM [facility] NRBC 0.0 <1.0 % LAB HEMETOLOGY METHOD 11/07/2024 10:41 AM [facility] NRBC Absolute 0.00 <0.10 K/mcL LAB HEMETOLOGY METHOD 11/07/2024 10:41 AM [facility] Blood Venous blood specimen / Unknown Venipuncture / Unknown 11/07/2024 7:17 AM EDT 11/07/2024 8:48 AM EDT us Jorge Spears MD LAB BLOOD ORDERABLES Final Result [facility] [address] [place] [address], * (ABNORMAL) Comprehensive metabolic panel (11/07/2024 7:17 AM EDT) Sodium 141 133 - 145 mmol/L LAB CHEMISTRY METHOD 11/07/2024 11:00 AM [facility] Potassium 4.5 3.5 - 5.5 mmol/L LAB CHEMISTRY METHOD 11/07/2024 11:00 AM [facility] Chloride 108 96 - 110 mmol/L LAB CHEMISTRY METHOD 11/07/2024 11:00 AM [facility] CO2 28 21 - 32 mmol/L LAB CHEMISTRY METHOD 11/07/2024 11:00 AM [facility] Anion Gap 5 3 - 11 LAB CHEMISTRY METHOD 11/07/2024 11:00 AM [facility] Glucose 176(H) 70 - 100 mg/dL LAB CHEMISTRY METHOD 11/07/2024 11:00 AM [facility] BUN 14 5 - 25 mg/dL LAB CHEMISTRY METHOD 11/07/2024 11:00 AM [facility] Creatinine 0.83 0.50 - 1.10 mg/dL LAB CHEMISTRY METHOD 11/07/2024 11:00 AM [facility] eGFR 75 >=60 mL/min/1. 73m2 LAB CHEMISTRY METHOD 11/07/2024 11:00 AM [facility] Comment:Calculation based on the Chronic Kidney Disease Epidemiology Collaboration (CKD-EPI) equation refit without adjustment for race. BUN/Creatinine Ratio 16.9 LAB CHEMISTRY METHOD 11/07/2024 11:00 AM [facility] Calcium 8.7 8.5 - 10.5 mg/dL LAB CHEMISTRY METHOD 11/07/2024 11:00 AM [facility] AST (SGOT) 16 10 - 42 unit/L LAB CHEMISTRY METHOD 11/07/2024 11:00 AM EDT [facility] ALT (SGPT) 22 10 - 60 unit/L LAB CHEMISTRY METHOD 11/07/2024 11:00 AM EDT [facility] Alkaline Phosphatase 94 42 - 121 unit/L LAB CHEMISTRY METHOD 11/07/2024 11:00 AM EDT [facility] Total Protein 6.8 6.0 - 8.0 g/dL LAB CHEMISTRY METHOD 11/07/2024 11:00 AM EDT [facility] Albumin 3.1(L) 3.2 - 5.0 g/dL LAB CHEMISTRY METHOD 11/07/2024 11:00 AM EDT [facility] Total Bilirubin 0.2 0.0 - 1.4 mg/dL LAB CHEMISTRY METHOD 11/07/2024 11:00 AM EDT [facility] Blood Venous blood specimen / Unknown Venipuncture / Unknown 11/07/2024 7:17 AM EDT 11/07/2024 8:48 AM EDT Jorge Spears MD LAB BLOOD ORDERABLES Final Result [facility] [address] [place] [address], from Last 3 Months Insurance MEDICAID - [place] [facility] Member Subscriber Plan / Payer (Ef fective 2018-Present) Name:Eula Gibbs Relation to Subscriber:Self Name:Eula Gibbs Payer ID:[id number] Group ID:[id number] Type:Not on file Address: [address] [place] [phone] Care Teams Disability Liaison Officer Relationship Specialty Start Date End Date Jorge Spears MD [address] [place] [phone] PCP - General Internal Medicine 11/07/24
== END 2025-02-06 16:01 | disposition home or self-care (01) ==
LOC: HO.HSM 15:34
PROVIDERS: PCP Internal Medicine; Visit Provider Psychiatry & Neurology Neurology
DX: G31.83 Neurocognitive disorder with Lewy bodies (principal); F02.80 Dementia in other diseases classified elsewhere, unspecified severity, without behavioral disturbance, psychotic disturbance, mood disturbance, and anxiety; R44.3 Hallucinations, unspecified
CPT/HCPCS: 99214

== ENCOUNTER → 2025-02-06 15:33 | Outpatient (BNVA) | payer OTHER, SELFPAY | PROVIDERS: PCP Internal Medicine; Visit Provider Psychiatry & Neurology Neurology | DX: G31.83 Neurocognitive disorder with Lewy bodies (principal); G31.84 Mild cognitive impairment of uncertain or unknown etiology; R44.3 Hallucinations, unspecified | CPT/HCPCS: 99212 ==